=== PATIENT | male | born 1960 | race Caucasian/White ===

== ENCOUNTER 2017-10-14 09:30 | Emergency (ER) | payer SELFPAY ==
[2017-10-14 09:54] VITALS: BP 132/92
--- NOTE | 2017-10-14 09:55 | ED ---
Skin Complaint - HPI Summary HPI Summary: Patient is a 57-year-old male presenting to the ED with a complaint of rash to the left lower leg just inferior to the knee on the calf. He states he first noticed the rash this morning. Denies any known tick bites or bug bites. No history of fungal infections or bacterial infections. He states he is bitten by ticks frequently, but has not noticed one recently. Denies any fevers, sweats, chills, however he endorses some joint pains over the last few days. None currently. Denies any neck stiffness. Denies any shortness of breath or chest pain. - History of Current Complaint Chief Complaint: EDRashSkinAbscess Time Seen by Provider: 10/14/17 09:32 Stated Complaint: TICK BITE/BULLSEYE RING/FLU LIKE SYMPTOMS Hx Obtained From: Patient Onset/Duration: Started Hours Ago Skin Exposure Onset/Duration: Hours Ago Timing: Constant Onset Severity: Mild Current Severity: Mild Pain Intensity: 0 Pain Scale Used: 0-10 Numeric Character: Redness Aggravating Symptom(s): Nothing Alleviating Symptom(s): Nothing Associated Signs & Symptoms: Negative - Allergy/Home Medications Allergies/Adverse Reactions: Allergies Allergy/AdvReac Type Severity Reaction Status Date / Time No Known Allergies Allergy Verified 10/14/17 09:35 Home Medications: Home Medications NK [No Home Medications Reported] 10/14/17 [History Confirmed 10/14/17] PMH/Surg Hx/FS Hx/Imm Hx Previously Healthy: Yes - Immunization History Hx Pertussis Vaccination: No Immunizations Up to Date: Unable to Obtain/Confirm Infectious Disease History: No Infectious Disease History: Denies: Traveled Outside the [place] in Last 30 Days - Social History Occupation: Employed Full-time Lives: Alone Alcohol Use: None Hx Substance Use: No Substance Use Type: Reports: None Hx Tobacco Use: No Smoking Status (MU): Never Smoked Tobacco Review of Systems Constitutional: Negative Negative: Fever, Chills, Fatigue, Skin Diaphoresis Negative: Palpitations, Chest Pain Negative: Shortness Of Breath, Cough Genitourinary: Negative Positive: no symptoms reported, see HPI Negative: Arthralgia, Myalgia Positive: Rash - purple/erythematous area to the posterior left leg without pruritis or pain, Other Neurological: Negative All Other Systems Reviewed And Are Negative: Yes Physical Exam Triage Information Reviewed: Yes Vital Signs On Initial Exam: Initial Vitals Temp Pulse Resp BP Pulse Ox 97.9 F 87 19 130/82 97 10/14/17 09:31 10/14/17 09:31 10/14/17 09:31 10/14/17 09:31 10/14/17 09:31 Vital Signs Reviewed: Yes Appearance: Positive: Well-Appearing, Well-Nourished Skin: Positive: Warm, Skin Color Reflects Adequate Perfusion, Other - purple/ erythematous area to the posterior left leg without pruritis or pain - no EM rash noted. the borders are not well demarcated or raised. no evidence of tinea corporus Head/Face: Positive: Normal Head/Face Inspection Eyes: Positive: EOMI, JANA, Conjunctiva Clear Neck: Positive: No Lymphadenopathy Respiratory/Lung Sounds: Positive: Breath Sounds Present Cardiovascular: Positive: Pulses are Symmetrical in both Upper and Lower Extremities Musculoskeletal: Positive: Strength/ROM Intact Neurological: Positive: Speech Normal Psychiatric: Positive: Affect/Mood Appropriate AVPU Assessment: Alert Diagnostics - Vital Signs Vital Signs Temp Pulse Resp BP Pulse Ox 10/14/17 09:31 97.9 F 87 19 130/82 97 - Laboratory Lab Statement: Any lab studies that have been ordered have been reviewed, and results considered in the medical decision making process. Course/Dx - Course Course Of Treatment: Patient is evaluated for rash to the left posterior lower extremity. The rash appears to be purple and erythematous, confluent macule without pain or pruritus. It does not appear to be an EM rash and there is no Bullseye noted. No tick bite or evidence of previous tick bite. The area does not appear to be well demarcated. No raised edges are noted. I discussed obtaining a Lyme serology and patient declines at this time. I have given him information on tick bites, Lyme disease. He will return for any worsening or changing symptoms. He agrees with this plan and discharge. - Diagnoses Provider Diagnoses: Rash Discharge - Sign-Out/Discharge Documenting (check all that apply): Discharge/Admit/Transfer - Discharge Plan Condition: Stable Disposition: HOME Patient Education Materials: Lyme Disease (ED), Tick Bite (ED) Additional Instructions: I have given you information regarding tick bites and lyme disease If you develop joint aches in your elbows and knees, severe headaches or neck stiffness, please return to the ED If you have a tick attachment, rub geovanni dish soap over the tick in circular motions until detachment Unless tick is engorged or you develop a bullseye rash, you will not need prophylactic treatment - Billing Disposition and Condition Condition: STABLE Disposition: Home
== END 2017-10-14 09:53 | disposition home or self-care (01) ==
LOC: ED 09:30
DX: R21 Rash and other nonspecific skin eruption (principal)
CPT/HCPCS: 99282